=== PATIENT | female | born 1955 | race Caucasian/White ===

== ENCOUNTER → 2016-10-04 | Outpatient (CLI) | payer OTHER ==
[~2016-10-04] MED LIST: HYDR12.5 PO; METO-272 PO; OLME20TA22 PO
--- OUTSIDE RECORDS SUMMARY | 2016-10-04 08:57 | XMS REPORT | Continuity of Care Document ---
Author Author [facility] Organization [facility] Address Unknown Phone Unavailable Care Team Providers Care Past Due Accounts Clerk Name Role Phone NELY GRANADOS MD PCP Insurance Providers Payer Name Policy Number Subscriber Name Relationship [employer] [id number] Xochilt Sanders 19 Self / Same As Patient Advance Directives Directive Response Recorded Date/Time Advance Directives No 02/14/16 7:26am Health Care Power of Exterior Door Installer No 02/14/16 7:26am Organ Donor No 02/14/16 7:26am Resuscitation Status Full Code 02/14/16 7:26am Problems No problem information available. Medications Current Home Medications Medication Dose Units Route Directions Days/Qty Instructions Start Date Hydrochlorothiazide 12.5 Mg 12.5 Mg Oral Daily 02/09/16 Olmesartan Medoxomil 20 Mg 10 Mg Oral Daily 02/09/16 Metoprolol Succinate 50 Mg 25 Mg Oral Daily 02/09/16 Social History Social History Problem Response Recorded Date/Time Recent Foreign Travel No 02/14/2016 7:30am Smoking Status Former Smoker 02/14/2016 7:28am Query Response Start Date Stop Date Smoking Status Former Smoker Hospital Discharge Instructions Patient Instructions Physician Instructions Plan of Care/Instructions/FU: Follow up with Dr. Elias in 2 weeks. High fiber diet. Activity as Tolerated: Yes Discharge Diet: Other Diet (High Fiber diet. ) Care Plan Patient Instructions:: Follow up with Dr. Elias in 2 weeks. High fiber diet. Plan of Care Discharge Date 02/14/16 9:50am Instructions/Education Provided COLONOSCOPY Diverticulosis (GEN) High Fiber Diet (DC) Colonoscopic Polypectomy (DC) Diverticulosis Diet (GEN) Prescriptions See Medication Section Functional Status No functional status results. Allergies, Adverse Reactions, Alerts No known allergies. Immunizations No immunization records. Vital Signs Acute Vital Signs Vital Response Date/Time Temperature (Fahrenheit) 97.0 degrees F (97.6 - 99.5) 02/14/2016 9:45am Temperature (Calculated Celsius) 36.72348 degrees C (36.4 - 37.5) 02/14/2016 9:45am Temperature Source Temporal 02/14/2016 9:45am Pulse Rate (adult) 64 bpm (60 - 90) 02/14/2016 9:45am Respiratory Rate 18 bpm (12 - 24) 02/14/2016 9:45am O2 Sat by Pulse Oximetry 98 % (88 - 100) 02/14/2016 9:45am Blood Pressure 148/88 mm Hg 02/14/2016 9:45am Pain Pain Intensity 2 02/14/2016 9:45am Height (Feet) 5 feet 02/14/2016 7:28am Height (Inches) 4.00 inches 02/14/2016 7:28am Height (Calculated Centimeters) 162.498895 cm 02/14/2016 7:28am Weight (Pounds) 125 pounds 02/14/2016 7:28am Weight (Ounces) 0.0 oz 02/14/2016 7:28am Weight (Calculated Grams) 10989.047 gm 02/14/2016 7:28am Weight (Calculated Kilograms) 56.131227 kilograms 02/14/2016 7:28am Calculated BMI 21.5 02/14/2016 7:28am Results No known relevant diagnostic tests, laboratory data and/or discharge summary. Procedures Procedure Status Date Provider(s) Anesthesia for 30 minutes Active 02/14/16 SILVIO ELIAS DO Encounters Encounter Location Arrival/Admit Date Discharge/Depart Date Attending Provider Departed [facility] 02/14/16 6:51am 9:50am SILVIO ELIAS DO Registered Clinic [facility] 02/09/16 5:40am SILVIO ELIAS DO
--- NOTE | 2016-10-04 19:05 | Diagnostic Imaging Report ---
EXAMINATION: Bilateral digital screening mammogram with CAD. The current study was also evaluated with a Computer Aided Detection (CAD) system. INDICATION: Screening. No current complaints stated on the questionnaire. COMPARISON: 06/30/15. FINDINGS: The breasts are composed of scattered fibroglandular densities. There are scattered benign-appearing calcifications seen. Biopsy clips in the left breasts are noted. Allowing for technique and positional differences, no suspicious change is seen. IMPRESSION: No significant change. ACR BI-RADS Category 2: Benign findings. Result letter will be mailed to the patient. Note: At least 10% of breast cancer is not imaged by mammography. Dictated by: Dictated on workstation # [id number]
== END ==
LOC: RAD 08:54
PROVIDERS: ATTEND Nurse Practitioner Family
DX: Z12.31 Encounter for screening mammogram for malignant neoplasm of breast (principal)
CPT/HCPCS: 77067

== ENCOUNTER → 2017-11-06 | Outpatient (CLI) | payer OTHER ==
[~2017-11-06] MED LIST changes: -METO-272 PO; +METO-370 PO; +OLME20TA21 PO; -OLME20TA22 PO
--- NOTE | 2017-11-06 19:23 | Diagnostic Imaging Report ---
EXAMINATION: Digital mammogram bilateral screening. INDICATION: Screening. COMPARISON: This study was compared to the prior exams of 10/04/2016, 06/30/2015, and 06/21/2014. At this time, there are no current complaints. The current study was also evaluated with a Computer Aided Detection (CAD) system. FINDINGS: The fibroglandular tissue in both breasts is heterogeneously dense. This does limit the sensitivity of this exam. Overall, there does not appear to have been any significant change when compared to the prior study. No primary or secondary sign of malignancy is noted. The stereotactic clips seen previously are again evident in the left breast. IMPRESSION: There is no radiographic evidence for malignancy. ACR BI-RADS Category 1: Negative. Result letter will be mailed to the patient. Note: At least 10% of breast cancer is not imaged by mammography. Dictated by: Dictated on workstation # [id number]
== END ==
LOC: RAD 08:25
PROVIDERS: ATTEND Internal Medicine
DX: Z12.31 Encounter for screening mammogram for malignant neoplasm of breast (principal)
CPT/HCPCS: 77067

== ENCOUNTER → 2018-12-23 | Outpatient (CLI) | payer OTHER ==
--- NOTE | 2018-12-23 12:08 | Diagnostic Imaging Report ---
INDICATION: Screening. TECHNIQUE: The current study was also evaluated with a Computer Aided Detection (CAD) system. 3D tomographic imaging was also performed. COMPARISON: 11/06/2017, 10/04/2016, and 06/30/2015. FINDINGS: There are scattered fibroglandular densities bilaterally. There are benign type calcifications in both breasts. There is a surgical clip in the upper outer left breast. There is no new dominant mass, spiculated lesion, or suspicious calcification identified. The skin, nipples, and axillae are unremarkable. IMPRESSION: Benign findings. ACR BI-RADS Category 2: Benign findings. Result letter will be mailed to the patient. Note: At least 10% of breast cancer is not imaged by mammography. Dictated by: Dictated on workstation # [id number]
== END ==
LOC: RAD 07:48
PROVIDERS: ATTEND Internal Medicine
DX: Z12.31 Encounter for screening mammogram for malignant neoplasm of breast (principal)
CPT/HCPCS: 77067

== ENCOUNTER → 2020-12-19 | Outpatient (CLI) | payer OTHER ==
[~2020-12-19] MED LIST changes: -METO-370 PO; +METO50TA7 PO
--- NOTE | 2020-12-19 10:15 | Diagnostic Imaging Report ---
INDICATION: Routine screening. Comparison is made with prior mammogram 12/23/2018 and 11/06/2017. 2-D and 3-D bilateral screening mammography was performed with CAD. Scattered fibroglandular densities are identified bilaterally. Benign calcifications again noted. The clip in the outer left breast is again noted. Overall parenchymal pattern appears to be stable. No dominant mass or malignant appearing microcalcifications are seen. Axillae are unremarkable. IMPRESSION: BI-RADS Category 2 No mammographic features suspicious for malignancy are identified. ACR BI-RADS Category 2: Benign findings. Result letter will be mailed to the patient. Note: At least 10% of breast cancer is not imaged by mammography. Dictated by: Dictated on workstation # [id number]
== END ==
LOC: RAD 08:00
PROVIDERS: ATTEND Nurse Practitioner Family
DX: Z12.31 Encounter for screening mammogram for malignant neoplasm of breast (principal); Z00.01 Encounter for general adult medical examination with abnormal findings; I10 Essential (primary) hypertension; E04.1 Nontoxic single thyroid nodule; E05.00 Thyrotoxicosis with diffuse goiter without thyrotoxic crisis or storm
CPT/HCPCS: 77063; 77067

== ENCOUNTER → 2022-02-06 | Outpatient (CLI) | payer MEDICARE, OTHER ==
--- NOTE | 2022-02-06 13:10 | Diagnostic Imaging Report ---
INDICATION: Routine screening. Comparison is made with prior mammogram from 12/19/2020 and 12/23/2018. 2-D and 3-D bilateral screening mammography was performed with CAD. CAD is utilized. The current study was also evaluated with a Computer Aided Detection (CAD) system. Both breasts are heterogeneously dense, limiting the sensitivity of mammography. There are benign calcifications in both breasts. There are biopsy clips in the left breast. No mass or malignant-appearing microcalcifications are seen. Axillae are unremarkable. IMPRESSION: BI-RADS Category 2 No mammographic features suspicious for malignancy are identified. ACR BI-RADS Category 2: Benign findings. Result letter will be mailed to the patient. Note: At least 10% of breast cancer is not imaged by mammography. Dictated by: Dictated on workstation # [id number]
== END ==
LOC: RAD 07:43
PROVIDERS: ATTEND Nurse Practitioner Family
DX: Z12.31 Encounter for screening mammogram for malignant neoplasm of breast (principal)
CPT/HCPCS: 77063; 77067

== ENCOUNTER → 2022-05-15 | Outpatient (CLI) | payer MEDICARE, OTHER ==
--- NOTE | 2022-05-15 15:58 | Diagnostic Imaging Report ---
INDICATION: 66-year-old asymptomatic postmenopausal female COMPARISON: None available FINDINGS: AP Spine L1-L4: [BMD (g/cm2): 1.307] [T-Score: 0.9] [Z-Score: 2.8] [BMD Previous: na] [BMD % Change: na] LT Hip Neck: [BMD (g/cm2): 1.003] [T-Score: -0.2] [Z-Score: 1.4] LT Hip Total: [BMD (g/cm2):1.050] [T-Score:0.3] [Z-Score: 1.8] [BMD Previous: na] [BMD % Change: na] RT Hip Neck: [BMD (g/cm2):0.910] [T-Score:-0.9] [Z-Score:0.8] RT Hip Total: [BMD (g/cm2):1.037] [T-score:0.2] [Z-Score:1.7] [BMD Previous:na] [BMD % Change:na] *Indicates significant change from prior examination based on 95% confidence level. World Health Organization criteria for BMD interpretation classify patients as Normal (T-score at or above -1.0), Osteopenic (T-score between -1.0 and -2.5) or Osteoporotic (T-score at or below -2.5). LIMITATIONS AND MODIFICATION: Degenerative sclerosis of the lumbar spine likely falsely elevated bone mineral density assessment from this region. FRACTURE RISK (FRAX SCORE): The ten year probability of (%): Major Osteoporotic Fracture: [na] Hip Fracture: [na] IMPRESSION: 1. Normal bone mineral density. 2. Baseline examination. 3. See below National Osteoporosis Foundation guidelines on when to potentially initiate pharmacologic therapy. Based on the National Osteoporosis Foundation Guidelines, pharmacologic treatment should be initiated in any of the following, unless clinical conditions suggest otherwise: * Any patient with prior fragility fracture of the hip or vertebrae. A spine fracture indicates 5X risk for subsequent spine fracture and 2X risk for subsequent hip fracture. * Osteoporosis (T-score <-2.5). * Postmenopausal women and men age 50 and older with low bone mass/osteopenia (T-score between -1.0 and -2.5) by DXA and 10-year major osteoporotic fracture greater than 20% or a 10-year probability of hip fracture greater than 3%. These fracture risks are supplied above in the FRAX score, if applicable. * Clinician judgement and/or patient preferences may indicate treatment for people with 10-year fracture probabilities above or below these levels. Dictated by: Dictated on workstation # [id number]
== END ==
LOC: RAD 10:33
PROVIDERS: ATTEND Nurse Practitioner Family
DX: Z78.0 Asymptomatic menopausal state (principal)
CPT/HCPCS: 77080

== ENCOUNTER → 2023-04-11 | Outpatient (CLI) | payer MEDICARE, OTHER ==
[~2023-04-11] MED LIST changes: -OLME20TA21 PO; +OLME20TA75 PO
--- NOTE | 2023-04-11 09:51 | Diagnostic Imaging Report ---
Indication: Routine screening. Comparison is made with prior mammogram from 02/06/2022 and 12/19/2020. 2-D and 3-D bilateral screening mammography was performed with with CAD. The current study was also evaluated with a Computer Aided Detection (CAD) system. Scattered fibroglandular densities are identified bilaterally. Biopsy changes left breast again noted. There are scattered benign calcifications in both breasts. No mass or malignant-appearing microcalcifications are identified. Axillae are unremarkable. IMPRESSION: BI-RADS Category 2 No mammographic features suspicious for malignancy are identified. ACR BI-RADS Category 2: Benign findings. Result letter will be mailed to the patient. Note: At least 10% of breast cancer is not imaged by mammography. Dictated by: Dictated on workstation # [id number]
== END ==
LOC: RAD 07:30
PROVIDERS: ATTEND Nurse Practitioner Family
DX: Z12.31 Encounter for screening mammogram for malignant neoplasm of breast (principal)
CPT/HCPCS: 77063; 77067